=== PATIENT | female | born 1970 | race Caucasian/White ===

== ENCOUNTER 2018-12-25 19:09 | Emergency (ER) | payer BC ==
[2018-12-25] MEDS ORDERED: Sodium Chloride 0.9% 10 ML Syringe FLUSH PRN (19:13)
[2018-12-25] MEDS: HYDROmorphone 1 MG/ML Syringe IVPUSH ONE ×2 (19:22→20:00)
--- NOTE | 2018-12-25 19:51 | CR ---
[id number] RAD/RAD Elbow Left 2V EXAM: SINGLE VIEW LEFT ELBOW. INDICATION: FELL, LT ELBOW PAIN LIMITED MOBILITY ONLY ALLOWED FOR COMPARISON: None. DISCUSSION: Limited single view of the left elbow demonstrates posterior dislocation of the left elbow. There is no fracture definitely identified however again evaluation is limited with on a single view only. IMPRESSION: 1. ABOVE. Akhil Guerra DO 12/25/181950 Thank you for allowing us to participate in the care of your patient.
--- NOTE | 2018-12-25 20:17 | EDM.PDOC ---
ED HPI GENERAL MEDICAL PROBLEM - General Chief Complaint: Upper Extremity Injury/Pain Stated Complaint: POSSIBLE BROKEN ARM Time Seen by Provider: 12/25/18 19:10 Source of Information: Reports: Patient History Limitations: Reports: No Limitations - History of Present Illness INITIAL COMMENTS - FREE TEXT/NARRATIVE: PtZaid presents to ER with complaints of L elbow pain. She states that [place] inj[place]. She is not sure how she fell, but denies striking her head. She denies any neck pain. She complains of pain to the elbow with radiation into the upper arm and into the elbow. She states that she thinks she possibly dislocated her elbow once once as a child as well. Denies any LOC. No chest pain or shortness of breath. Her last intake was dinner at 6 PM tonight. Denies any history of problems with anesthesia in the past. Onset: Today Location: Reports: Upper Extremity, Left Quality: Reports: Throbbing Severity: Severe Improves with: Reports: Rest Worsens with: Reports: Movement - Related Data Allergies Allergy/AdvReac Type Severity Reaction Status Date / Time Penicillins Allergy Other Verified 12/25/18 19:13 ED ROS GENERAL - Review of Systems Review Of Systems: See Below Constitutional: Reports: No Symptoms HEENT: Reports: No Symptoms Respiratory: Reports: No Symptoms Cardiovascular: Reports: No Symptoms Endocrine: Reports: No Symptoms GI/Abdominal: Reports: No Symptoms : Reports: No Symptoms Musculoskeletal: Reports: Other (L elbow pain) Skin: Reports: Diaphoresis Neurological: Reports: No Symptoms Psychiatric: Reports: No Symptoms Hematologic/Lymphatic: Reports: No Symptoms Immunologic: Reports: No Symptoms ED EXAM, GENERAL - Physical Exam Exam: See Below Exam Limited By: No Limitations General Appearance: Alert, WD/WN, No Apparent Distress Extremities: Limited Range of Motion, Other (Guarding her L arm/elbow. No pain on manipulation of wrist or shoulder. Obvious deformity to L elbow.) Skin Exam: Warm, Dry, Intact ED GENERAL MEDICAL PROCEDURES - Splinting Left Upper Extremity Splint Site: L elbow Splint Material: Fiberglass Splint Design: Posterior Applied & Form Fitted By: Provider Provider Post-Splint Application NV Check: NV Status Normal Progress/Comments: Posterior fiberglas L upper extremity splint placed. CMS intact pre and post placement. Course - Orders/Labs/Meds Orders: Active Orders 24 hr Category Date Time Status Sodium Chloride 0.9% [Saline Flush] Med 12/25/18 19:13 Active 10 ml FLUSH ASDIRECTED PRN Peripheral IV Insertion Adult [OM.PC] Routine Oth 12/25/18 19:13 Ordered Medication Orders Sodium Chloride (Saline Flush) 10 ml FLUSH ASDIRECTED PRN PRN Reason: Keep Vein Open Meds: Medications Generic Name Dose Route Start Last Admin Trade Name Freq PRN Reason Stop Dose Admin Sodium Chloride 10 ml 12/25/18 19:13 Saline Flush FLUSH ASDIRECTED PRN Keep Vein Open Discontinued Medications Generic Name Dose Route Start Last Admin Trade Name Freq PRN Reason Stop Dose Admin Hydromorphone HCl 1 mg 12/25/18 19:14 12/25/18 19:22 Dilaudid IVPUSH 12/25/18 19:15 1 mg ONETIME ONE Administration Hydromorphone HCl 1 mg 12/25/18 19:52 12/25/18 20:00 Dilaudid IVPUSH 12/25/18 19:53 1 mg ONETIME ONE Administration Departure - Departure Time of Disposition: 20:20 Disposition: DC/Tfer to [facility] 02 Clinical Impression: Dislocation, elbow closed - Discharge Information Referrals: Stephanie Stern DO [Primary Care Provider] - Forms: Interfacility Transfer EMTALA, ED Department Discharge - Problem List Review Problem List Initiated/Reviewed/Updated: Yes - My Orders Last 24 Hours: My Active Orders 12/25/18 19:13 Sodium Chloride 0.9% [Saline Flush] 10 ml FLUSH ASDIRECTED PRN Peripheral IV Insertion Adult [OM.PC] Routine - Assessment/Plan Last 24 Hours: My Active Orders 12/25/18 19:13 Sodium Chloride 0.9% [Saline Flush] 10 ml FLUSH ASDIRECTED PRN Peripheral IV Insertion Adult [OM.PC] Routine Plan: Unable to find 1:1 staffing for conscious sedation. [facility] is off call and all of the local conscious sedation nurses were unavailable. Pt. was given 1 mg of dilaudid IV on arrival and was given a second milligram IV prior to splint placement. Splint was placed without difficulty. Contacted [facility]-Dr. Armstrong at [facility] accepts the patient. She will be transported via private vehicle. Advised not to eat or drink anything after discharge and to travel directly to [facility]. Saline lock was kept in place.
== END 2018-12-25 20:20 | disposition short-term general hospital (02) ==
LOC: VM.ED 19:09
DX: S53.105A Unspecified dislocation of left ulnohumeral joint, initial encounter (principal); Z88.0 Allergy status to penicillin; W19.XXXA Unspecified fall, initial encounter; Y99.0 Civilian activity done for income or pay
CPT/HCPCS: 29105; 73070; 96374; 96376; 99283; J1170